=== PATIENT | female | born 1995 | race Caucasian/White ===

== ENCOUNTER 2019-02-12 22:30 | Inpatient (IN) | payer OTHER ==
[~2019-02-12] VITALS: Ht 152.4 cm; Wt 67.8 kg
[2019-02-12] MEDS ORDERED: MULTTAB20 PO (22:46)
[2019-02-12] MEDS ORDERED: ZANT150T40 PO (22:47)
[2019-02-12] MEDS ORDERED: VALT1TAB PO (22:47)
[2019-02-12 23:01] VITALS: BP 140/93
[2019-02-12] MEDS ORDERED: LACTATED RINGER'S 1000 ML IV STA (23:23)
[2019-02-12] MEDS ORDERED: LR 1,000 ML IV SCH (23:23)
[2019-02-12 23:29] VITALS: BP 121/79
[2019-02-12] MEDS ORDERED: OXYTOCIN DRIP 30 UNITS in IV 1 EA IV SCH (23:45)
--- NOTE | 2019-02-12 23:50 | HPEPDOC ---
Obstetrical History & Physical General Date of Admission 12 February 2019 History of Present Illness Grazyna is a 23yo with SIUP at 38w2d by lmp c/w 6wk u/s presenting with CC of leakage of fluid, clear, that began around 20:45 this evening. She notes she was on her exercise ball and felt large gush of fluid, then another on her way to the bathroom and she has been copiously leaking ever since. Has felt movement. She felt like she "lost her mucous plug" this morning, there was a tinge of blood in that and then she noticed a bit of spotting after her water broke. Feels 'cramping' but no regular ctx pattern. No fevers/chills. She has a bit of nausea currently. 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 Past Medical History Medical History Oral HSV Surgical History: Other (tympanostomy tubes) Family History Significant Family History: No pertinent family hx Social History Marital Status: Family situation: Spouse/partner home Psychosocial History: No pertinent psych hx * Smoker: non-smoker Alcohol: Denies Drugs: denies Imunizations Tdap status: current Influenza Status: current Allergies Coded Allergies: No Known Allergies (Unverified , 02/12/19) Medications Scheduled No122/Iron/Folic Acid ( Multi Tablet) 1 Each Tablet, 1 TAB PO DAILY Ranitidine Hcl (Zantac) 150 Mg Tablet, 150 MG PO BID Valacyclovir HCl (Valtrex) 1,000 Mg Tablet, 1 TAB PO DAILY Physical Examination Physical Examination GENERAL: Alert and oriented times three. ABDOMEN: Gravid and non-tender to touch. FETUS: Is vertex (VTX) by sterile vaginal examination (SVE) EXTREMITIES: No edema of BLE Grossly ruptured with clear fluid Nitrazine positive Laboratory Data CBC/BMP 28wk H/H 12.5/38.8, plt 207 Pertinent Laboratoy Data Blood Type: O+ RBC Antibody Screen: Negative HIV: Negative Hepatitis B: Negative Hepatitis C: Unknown Rapid Plasma Reagin: Nonreactive Rubella: Immune Varicella: Immune Chlamydia/Gonorrhea: Negative Group B Streptococcus: Negative Glucose Tolerance Test: 61 Anatomy Ultrasound Ultrasound Date: Oct 18, 2018 Placenta Location: Anterior Normal Anatomy: Yes Placenta Previa: No Steroid Therapy Steroid Therapy: No Vaginal Examination Dilation: 3 cm Effacement: 90% Station: -2 Cervical Consistency: Soft Cervical Position: Middle Presentation: Cephalic presentation Assessment Heart Rate (FHR): 140 Variability: Moderate Accelerations: Positive Decelerations: None Tocometer Contractions: Yes Frequency: irregular, greater than 10 min/apart Strength: palpated as mild Assessment/Plan Assessment Grazyna is a 23yo with SIUP at 38w2d by lmp c/w 6wk u/s with PROM, clear, at 20:45 by positive nitrazine and gross rupture of membranes. SCE 3/90/-2 but irregular ctx pattern with ctx >10min apart and some uterine irritability in between. status reassuring. GBS negative. Cephalic by SCE. Vitals wnl (first bp was barely mild range and next bp was normotensive). Plan Admit and orient. Supervisor P[employer] and consent. Diet: clear liquids Group B Streptococcus (GBS) negative Labs and intravenous (IV) per unit protocol. Counseled on Pitocin and augmentation of labor (IOL). Given lack of regular ctx pattern, will begin pitocin and titrate per protocol. Lactated Ringers (LR): Bolus 1000 mL, then at 125 mL/hr. Anticipate normal spontaneous delivery () Candidate for epidural as desired Safe to proceed MD Kendall Aguila Katrina D MD Feb 12, 2019 23:50
[2019-02-13] VITALS (29 sets, daily range): BP systolic 98–173; BP diastolic 52–114
[2019-02-13 00:26] LABS: HEMATOCRIT 36.9 % (36.0-47.0); HEMOGLOBIN 12.2 g/dl (12.0-15.5); MEAN CORPUSCULAR HEMOGLOBIN 29.5 pg (27.0-33.0); MEAN CORPUSCULAR HGB CONC 33.1 g/dl (32.0-36.5); MEAN CORPUSCULAR VOLUME 89.3 fl (80.0-96.0); PLATELET COUNT, AUTOMATED 237 10^3/uL (150-450); RED BLOOD COUNT 4.13 10^6/uL (4.00-5.40); WHITE BLOOD COUNT 7.9 10^3/uL (4.0-10.0)
[2019-02-13] MEDS ORDERED: FENTANYL 2MCG/ML ROPIVACAINE 0.2% IN 0.9% NACL 100ML IVBAG As Ordered ONE (01:44)
[2019-02-13 01:52] LABS: ALT/SGPT 16 U/L (12-78); BILIRUBIN,TOTAL 0.3 MG/DL (0.2-1.0); CREATININE FOR GFR 0.73 MG/DL (0.55-1.30); GLOMERULAR FILTRATION RATE > 60.0 (>60); LDH LACTATE DEHYDROGENASE 195 U/L (84-246); URIC ACID 4.7 MG/DL (2.6-6.0)
[2019-02-13 02:10] LABS: TOTAL PROTEIN,RANDOM URINE 25.6 MG/DL (0.0-12.0)
[2019-02-13] MEDS ORDERED: FENTANYL/ROPIVACAINE/NACL BAG 100 ML EPIDURAL SCH (03:30)
[2019-02-13] MEDS ORDERED: ONDANSETRON 4MG/2ML VIAL (J2405) IV PRN (03:30)
[2019-02-13] MEDS ORDERED: ePHEDrine SULFATE 25 MG/5 ML(5MG/ML) SYRINGE IV PRN (03:30)
[2019-02-13] MEDS ORDERED: diphenhydrAMINE INJ 50MG/ML VIAL (J1200) IV PRN (03:30)
[2019-02-13] MEDS ORDERED: REFRIGERATOR IV KEYS XX PRN (03:30)
[2019-02-13] MEDS ORDERED: EPIDURAL/PCA KEYS XX PRN (03:30)
[2019-02-13] MEDS ORDERED: LACTATED RINGER'S 1000 ML IV PRN (03:30)
[2019-02-13] MEDS ORDERED: EPIDURAL COMMENT XX SCH (03:30)
[2019-02-13] MEDS ORDERED: NALOXONE INJ 0.4 MG/1 ML VIAL (J2310) IV PRN (03:30)
[2019-02-13] MEDS ORDERED: OXYTOCIN DRIP 30 UNITS in IV 1 EA IV SCH (06:21)
--- NOTE | 2019-02-13 06:29 | DNPDOC ---
[facility] Delivery Note Delivery Note DATE OF DELIVERY: 13 February 2019 PREDELIVERY DIAGNOSIS: 38w6d PROM POST DELIVERY DIAGNOSIS: Delivered. PROCEDURE: Spontaneous vaginal delivery FILAMENT SHAPER: Dr. Hermila Argueta MD ANESTHESIA: epidural ESTIMATED BLOOD LOSS: 250 mL. FINDINGS: 6 pound 1 ounce (2750g) female , Score 8/9 DELIVERY SUMMARY: Grazyna is a 23yo [id number] s/p uncomplicated after presenting with PROM at 38w2d, delivering at 05:56 on 13 Feb 2019. She received an epidural and progressed quickly to C/C/+2, at which point she began pushing. Infant's head delivered OA, restituted MIRINA. Left anterior shoulder delivered followed by posterior shoulder and corpus. Spontaneous cry, infant vigorous, nose and mouth suctioned with bulb suction. Cord was quite short, so was clamped at the perineum x2 and cut by FOB. Infant then placed on maternal chest. Apgars 8/9. Inspection of perineum and vagina revealed small 1mll, repaired in routine fashion with 3-0 vicryl with complete hemostasis and excellent reapproximation. With fundal massage and traction on the cord, placenta delivered spontaneously and intact with 3 vessel centrally inserted cord. More uterine massage performed, pitocin given per protocol, fundus then firm at u-2cm with complete hemostasis. EBL 250ml. Mom and infant were doing well when I left the room. MD Kendall Aguila Katrina D MD Feb 13, 2019 06:29
[2019-02-13] MEDS ORDERED: IBUPROFEN 800 MG TAB PO PRN (06:30)
[2019-02-13] MEDS ORDERED: ACETAMINOPHEN TAB 650MG DOSE (2X325MG) PO PRN (06:30)
[2019-02-13] MEDS ORDERED: MEASLES,MUMPS,RUBELLA VACCINE INJ (MMR-II) (90707) SC SCH (06:30)
[2019-02-13] MEDS ORDERED: DIBUCAINE 1% OINTMENT 30GM TOP PRN (06:30)
[2019-02-13] MEDS ORDERED: RHOGAM 300 MCG (1500 IU) INJ (J2790) IM SCH (06:30)
[2019-02-13] MEDS ORDERED: IBUPROFEN 600 MG TAB PO PRN (06:30)
[2019-02-13] MEDS ORDERED: ACETAMINOPHEN 500 MG TAB PO PRN (06:30)
[2019-02-13] MEDS: DOCUSATE SODIUM 100 MG CAP PO PRN (12:26)
[2019-02-13] MEDS: PRENATAL VITAMINS CHEWABLE TABLET PO SCH (12:26)
[2019-02-14 05:48] VITALS: BP 125/81
--- NOTE | 2019-02-14 06:33 | IPNPDOC ---
Progress Note Date of Service: Feb 14, 2019 Day#: 1 Progress Note SUBJECT: patient is a 23 yo s/p ppd #1. Patient without concerns tod ay. She has been ambulating, voiding spontaneously without issue and tolerating regular diet. Breast feeding without issue. Reports lochia is like a heavy period. undecided on contraceptive. OBJECTIVE: VITAL SIGNS: Within normal limits, afebrile. Alert and oriented times three. Abdomen: Fundus firm at U-1. Soft, NTTP. LE: no edema/erythema/tenderness A/P ppd #1, doing well. encourage bf. discussed contraception. instructions to tack picker medications at [place]. anticipate d/c home ppd #2. VS, I&O, 24H, Fishbone Vital Signs/I&O Vital Signs Date Time Temp Pulse Resp B/P (MAP) Pulse Ox O2 Delivery O2 Flow Rate FiO2 02/14/19 05:48 98.0 68 17 125/81 (96) 02/13/19 09:00 Room Air I&O- Last 24 Hours up to 6 AM 02/14/19 06:00 Intake Total 846 ml Output Total 1150 ml Balance -304 ml DARREN MARCELINO DO Feb 14, 2019 06:33
[2019-02-14] MEDS: PRENATAL VITAMINS CHEWABLE TABLET PO SCH (09:46)
[2019-02-14] MEDS: DOCUSATE SODIUM 100 MG CAP PO PRN (09:47)
[2019-02-14 18:15] VITALS: BP 124/80
[2019-02-15 05:50] VITALS: BP 146/98
[2019-02-15] MEDS: PRENATAL VITAMINS CHEWABLE TABLET PO SCH (09:00)
--- NOTE | 2019-02-15 10:23 | DSES ---
DATE OF ADMISSION: 02/13/2019 DATE OF DISCHARGE: 02/15/2019 23-year-old 1 now para 1 admitted with spontaneous rupture of membranes at 38 and 2 weeks of gestation with epidural in place, spontaneous vaginal delivery live female 6 pounds 1 ounce or 2750 grams, scores eight and nine at 1 and 5 minutes respectively. Admitting hemoglobin 12.2, hematocrit 36.6 and platelets were 237. Her vital signs on discharge her blood pressure was 146/98, respirations 18, pulse 76, temperature 99.3. We discussed phlebitis, cystitis, mastitis, endometritis, cellulitis, diet, exercise pain management, perineal breast and wound care. The patient is planning on breast-feeding and seeing the exercise physiologist certified at [facility]. control be discussed at her six week checkup. In summary, we have a 38 and 2-week of gestation, active labor and delivered a live female infant, discharged improved. edited: 02/16/2019 0718 tkf MTDD
[2019-02-15] MEDS ORDERED: ACET1TAB55 PO (11:06)
[2019-02-15] MEDS ORDERED: IBUP-1022 PO (11:06)
[2019-02-15] MEDS ORDERED: DOCU100C16 PO (11:06)
== END 2019-02-15 12:13 | disposition home or self-care (01) | DRG 807 ==
LOC: M LDO 22:30 → M LDI 02-13 00:02 → M OBS 02-13 08:52
PROVIDERS: ADMIT Obstetrics & Gynecology; ATTEND Obstetrics & Gynecology
PROC: 10E0XZZ Delivery of Products of Conception, External Approach (ICD-10-PCS; principal; 2019-02-13)
PROC: 0HQ9XZZ Repair Perineum Skin, External Approach (ICD-10-PCS; 2019-02-13)
DX: O42.02 Full-term premature rupture of membranes, onset of labor within 24 hours of rupture (principal); Z37.0 Single live birth; Z3A.38 38 weeks gestation of pregnancy; O69.3XX0 Labor and delivery complicated by short cord, not applicable or unspecified; O70.0 First degree perineal laceration during delivery

== ENCOUNTER 2020-06-14 13:34 | Emergency (ER) | payer OTHER ==
[~2020-06-14] VITALS: Ht 154.9 cm; Wt 68.1 kg
[~2020-06-14 13:34] MED LIST: ACET1TAB55 PO; DOCU100C16 PO; IBUP-1022 PO; MULTTAB20 PO; VALT1TAB PO; ZANT150T40 PO
[2020-06-14 13:43] VITALS: BP 130/88
[2020-06-14] MEDS ORDERED: AMOX875T2 (13:46)
[2020-06-14] MEDS ORDERED: CIPR0.3S6 OTIC (14:08)
[2020-06-14] MEDS ORDERED: ONDA4TAB6 PO (14:08)
== END 2020-06-14 14:28 | disposition home or self-care (01) ==
LOC: M ED 13:34
DX: H60.332 Swimmer's ear, left ear (principal); H61.23 Impacted cerumen, bilateral; R11.2 Nausea with vomiting, unspecified; Z79.2 Long term (current) use of antibiotics